=== PATIENT | male | born 1960 | race Caucasian/White ===

== ENCOUNTER 2020-09-07 10:53 | Outpatient (REF) | payer OTHER, SELFPAY | END 2020-09-07 10:54 | disposition home or self-care (01) | LOC: HO.BBR 10:53 | PROVIDERS: Visit Provider Internal Medicine | DX: Z13.89 Encounter for screening for other disorder (principal) ==

== ENCOUNTER 2020-12-10 13:56 | Outpatient (REF) | payer OTHER, SELFPAY | END 2020-12-10 13:57 | disposition home or self-care (01) | LOC: HO.BBR 13:56 | PROVIDERS: PCP Internal Medicine; Visit Provider Internal Medicine | DX: Z13.89 Encounter for screening for other disorder (principal) ==

== ENCOUNTER 2021-03-10 11:24 | Outpatient (REF) | payer OTHER, SELFPAY | END 2021-03-10 11:25 | disposition home or self-care (01) | LOC: HO.BBR 11:24 | PROVIDERS: Visit Provider Internal Medicine | DX: Z13.89 Encounter for screening for other disorder (principal) ==

== ENCOUNTER 2021-06-08 10:47 | Outpatient (REF) | payer OTHER, SELFPAY | END 2021-06-08 10:48 | disposition home or self-care (01) | LOC: HO.BBR 10:47 | PROVIDERS: Visit Provider Internal Medicine | DX: Z13.89 Encounter for screening for other disorder (principal) ==

== ENCOUNTER 2021-09-13 08:53 | Outpatient (REF) | payer OTHER, SELFPAY | END 2021-09-13 08:54 | disposition home or self-care (01) | LOC: HO.BBR 08:53 | PROVIDERS: Visit Provider Internal Medicine Gastroenterology | DX: Z13.89 Encounter for screening for other disorder (principal) ==

== ENCOUNTER 2021-12-02 10:00 | Outpatient (REF) | payer OTHER, SELFPAY | END 2021-12-02 10:01 | disposition home or self-care (01) | LOC: HO.BBR 10:00 | PROVIDERS: Visit Provider Internal Medicine Gastroenterology | DX: Z13.89 Encounter for screening for other disorder (principal) ==

== ENCOUNTER 2022-03-03 13:47 | Outpatient (REF) | payer OTHER, SELFPAY | END 2022-03-03 13:48 | disposition home or self-care (01) | LOC: HO.BBR 13:47 | PROVIDERS: Visit Provider Internal Medicine Gastroenterology | DX: Z13.89 Encounter for screening for other disorder (principal) ==

== ENCOUNTER 2022-06-01 07:57 | Outpatient (REF) | payer OTHER, SELFPAY | END 2022-06-01 07:58 | disposition home or self-care (01) | LOC: HO.BBR 07:57 | PROVIDERS: PCP Internal Medicine; Visit Provider Internal Medicine Gastroenterology | DX: Z13.89 Encounter for screening for other disorder (principal) ==

== ENCOUNTER 2022-06-01 08:01 | Outpatient (REF) | payer OTHER, SELFPAY | END 2022-06-01 08:02 | disposition home or self-care (01) | LOC: HO.BBR 08:01 | PROVIDERS: Visit Provider Internal Medicine Gastroenterology | DX: Z13.89 Encounter for screening for other disorder (principal) ==

== ENCOUNTER 2022-09-01 07:56 | Outpatient (REF) | payer OTHER, SELFPAY | END 2022-09-01 07:57 | disposition home or self-care (01) | LOC: HO.BBR 07:56 | PROVIDERS: Visit Provider Internal Medicine Gastroenterology | DX: Z13.89 Encounter for screening for other disorder (principal) ==

== ENCOUNTER 2022-11-29 08:00 | Outpatient (REF) | payer OTHER, SELFPAY | END 2022-11-29 08:01 | disposition home or self-care (01) | LOC: HO.BBR 08:00 | PROVIDERS: Visit Provider Internal Medicine Gastroenterology | DX: Z13.89 Encounter for screening for other disorder (principal) ==

== ENCOUNTER 2023-02-28 08:00 | Outpatient (REF) | payer OTHER, SELFPAY | END 2023-02-28 08:01 | disposition home or self-care (01) | LOC: HO.BBR 08:00 | PROVIDERS: PCP Internal Medicine; Visit Provider Internal Medicine Gastroenterology | DX: Z13.89 Encounter for screening for other disorder (principal) ==

== ENCOUNTER 2023-05-31 10:05 | Outpatient (REF) | payer OTHER, SELFPAY | END 2023-05-31 10:06 | disposition home or self-care (01) | LOC: HO.BBR 10:05 | PROVIDERS: PCP Internal Medicine; Visit Provider Internal Medicine Gastroenterology | DX: Z13.89 Encounter for screening for other disorder (principal) ==

== ENCOUNTER 2023-09-06 08:05 | Outpatient (REF) | payer OTHER, SELFPAY | END 2023-09-06 08:06 | disposition home or self-care (01) | LOC: HO.BBR 08:05 | PROVIDERS: PCP Internal Medicine; Visit Provider Internal Medicine Gastroenterology | DX: Z13.89 Encounter for screening for other disorder (principal) ==

== ENCOUNTER 2024-01-17 13:39 | Outpatient (REF) | payer OTHER, SELFPAY | END 2024-01-17 13:40 | disposition home or self-care (01) | LOC: HO.BBR 13:39 | PROVIDERS: PCP Internal Medicine; Visit Provider Internal Medicine Gastroenterology | DX: Z13.89 Encounter for screening for other disorder (principal) ==

== ENCOUNTER 2024-04-18 08:08 | Outpatient (REF) | payer OTHER, SELFPAY ==
--- OUTSIDE RECORDS SUMMARY | 2024-04-18 08:20 | XMS_ITS | Encounter Summary ---
Author Organization [facility] Address [address] [place] [address] Care Team Providers Care Stage Setting Painter Apprentice Name Role Phone Regino Cam MD Primary Care Provider Encounter Details Date Type Department Care Team (Late st Contact Info) Description 04/17/2024 Telephone Gastroenterology - [address] [phone] Miki Cyr MD [address] [address] Social History Tobacco Use Types Packs/Day Years Used Date Smoking Tobacco: Never Assessed Sex and Gender Information Value Date Recorded Sex Assigned at Not on file Gender Identity Not on file Sexual Orientation Not on file documented as of this encounter Progress Notes * Coral Mensah [place] - 04/17/2024 2:25 PM EST Faxed orders for phlebotomy to [facility] * Farhana Carter - 04/17/2024 2:08 PM EST PT NEEDS NEW THERAPEUTIC PHLEBOTOMY ORDERS SENT TO [facility], HAS AN APPT THERE TOMORROW @ 8 A.M. documented in this encounter Plan of Treatment Not on file documented as of this encounter Visit Diagnoses Not on filedocumented in this encounter Care Teams Stage Setting Painter Apprentice Relationship Specialty Start Date End Date Regino Cam MD 100 [facility] [address] [place], [place] PCP - General Internal Medicine 01/23/08 documented as of this encounter
--- OUTSIDE RECORDS SUMMARY | 2024-04-18 08:20 | XMS_ITS | Clinical Summary ---
Author Organization [facility] ity Address [address] [place] [address] Care Team Providers Care Human Resource Adviser Name Role Phone Regino Cam MD Primary Care Provider Encounters Date Type Department Care Team Description 04/17/2024 Telephone Gastroenterology - [address] [place] [phone] Miki Cyr MD from Last 3 Months Social History Tobacco Use Types Packs/Day Years Used Date Smoking Tobacco: Never Assessed Sex and Gender Information Value Date Recorded Sex Assigned at Not on file Gender Identity Not on file Sexual Orientation Not on file Plan of Treatment Health Maintenance Due Date Last Done Comments DTaP,Tdap,and Td Vaccines (1 - Tdap) 06/12/1978 Zoster Vaccines (1 of 2) 06/12/2009 Cholesterol Screening (Lipid Panel) 02/22/2022 Colorectal Cancer Screening: Colonoscopy 02/22/2022 Depression Screening 02/22/2022 HIV Screening 02/22/2022 Hepatitis C Screening 02/22/2022 Social Influencers of Health Screening 02/22/2022 COVID-19 Vaccine ( - 2023-2 5 season) 2023 Influenza Vaccine (#1) 2023 RSV Immunization Patients 60 + Years Old (1 - 1-dose 75+ series) 06/12/2034 HIB Vaccines Aged Out No longer eligi ble based on patient's age to complete this topic HPV Vaccines Aged Out No longer eligi ble based on patient's age to complete this topic Hepatitis A Vaccines Aged Out No long er eligible based on patient's age to complete this topic Hepatitis B Vaccines Aged Out No long er eligible based on patient's age to complete this topic IPV Vaccines Aged Out No longer eligi ble based on patient's age to complete this topic MMR Vaccines Aged Out No longer eligi ble based on patient's age to complete this topic Meningococcal ACWY Vaccine Aged Out N o longer eligible based on patient's age to complete this topic Pneumococcal Vaccine: Pediat rics (0 to 5 Years) and At-Risk Patients (6 to 64 Years) Aged Out No longer eligible b ased on patient's age to complete this topic RSV Immunization Patients Un darvin 20 months Aged Out No longer eligible b ased on patient's age to complete this topic Varicella Vaccines Aged Out No longer eligible based on patient's age to complete this topic Care Teams Human Resource Adviser Relationship Specialty Start Date End Date Regino Cam MD 100 [facility] [address] [place], [place] PCP - General Internal Medicine 01/23/08
== END 2024-04-18 08:09 | disposition home or self-care (01) ==
LOC: HO.BBR 08:08
PROVIDERS: PCP Internal Medicine; Visit Provider Internal Medicine Gastroenterology
DX: Z13.89 Encounter for screening for other disorder (principal)

== ENCOUNTER 2024-07-17 08:06 | Outpatient (REF) | payer OTHER, SELFPAY ==
--- OUTSIDE RECORDS SUMMARY | 2024-07-17 08:16 | XMS_ITS | Clinical Summary ---
Author Organization [facility] ity Address [address] [place] [address] Care Team Providers Care Natural Resource Specialist Name Role Phone Regino Cam MD Primary Care Provider Social History Tobacco Use Types Packs/Day Years Used Date Smoking Tobacco: Never Assessed Sex and Gender Information Value Date Recorded Sex Assigned at Not on file Legal Sex Male 12:37 PM EST Gender Identity Not on file Sexual Orientation Not on file Plan of Treatment Health Maintenance Due Date Last Done Comments DTaP,Tdap,and Td Vaccines (1 - Tdap) 06/12/1978 Pneumococcal Vaccine: 50+ Ye ars (1 of 1 - PCV) 06/12/2009 Zoster Vaccines (1 of 2) 06/12/2009 Abdominal Aortic Aneurysm (A AA) Screen 02/22/2022 Cholesterol Screening (Lipid Panel) 02/22/2022 Colorectal Cancer Screening: Colonoscopy 02/22/2022 Depression Screening 02/22/2022 Hepatitis C Screening 02/22/2022 Social Influencers of Health Screening 02/22/2022 COVID-19 Vaccine ( - 2023-2 5 season) 2023 Falls Risk Assessment 06/12/2024 Influenza Vaccine (Season Ended) 2024 RSV Immunization Adult Patie nts (1 - 1-dose 75+ series) 06/12/2034 HIB [...] patient's age to complete this topic Meningococcal B Vaccine Aged Out No l onger eligible based on patient's age to complete [...] on patient's age to complete this topic Procedures Procedure Name Priority Date/Time Associated Diagnosis Comments EXTERNAL CLINICAL LAB 04/19/2024 from Last 3 Months Results * External clinical lab (04/19/2024) us Provider [facility] BLOOD ORDERABLES Fin al Result from Last 3 Months Care Teams Natural Resource Specialist Relationship Specialty Start Date End Date [facility]egino Cam MD [facility] [address] [place], [place] PCP - General Internal Medicine 01/23/08
== END 2024-07-17 08:07 | disposition home or self-care (01) ==
LOC: HO.BBR 08:06
PROVIDERS: PCP Internal Medicine; Visit Provider Internal Medicine Gastroenterology
DX: Z13.89 Encounter for screening for other disorder (principal)

== ENCOUNTER 2024-10-16 08:06 | Outpatient (REF) | payer MEDICARE, OTHER, SELFPAY ==
--- OUTSIDE RECORDS SUMMARY | 2024-10-16 08:13 | XMS_ITS | Clinical Summary ---
Author Organization 299 [facility] Address [address] [place] [address] Phone Care Team Providers Care Professor Of Violin Name Role Phone Regino Cam MD Primary Care Provider Encounters Date Type Department Care Team Description 07/18/2024 Telephone Gastroenterology - [address] [place] [phone] Miki Cyr MD from Last 3 Months Social History Tobacco Use Types Packs/Day Years Used Date Smoking Tobacco: Never Assessed Sex and Gender Information Value Date Recorded Sex Assigned at Not on file Legal Sex Male 12:37 PM EST Gender Identity Not on file Sexual Orientation Not on file Plan of Treatment Health Maintenance Due Date Last Done Comments Diabetes: Annual GFR (Glomerular Filtration Rate) 1959 Diabetes: Annual Foot Exam 06/12/1969 Diabetes: Annual Retina Eye Exam 06/12/1969 RSV Immunization Adult Patients (1 - Risk 60-74 years 1-dose series) 2019 Abdominal Aortic Aneurysm (AAA) Screen 02/22/2022 Cholesterol Screening (Lipid Panel) 02/22/2022 Colorectal Cancer Screening: Colonoscopy 02/22/2022 Hepatitis C Screening 02/22/2022 Medicare Annual Wellness Visit 02/22/2022 Social Influencers of Health Screening 02/22/2022 COVID-19 Vaccine ( season) 2023 03/28/2023, 01/19/2022, 02/02/2021, Additional history exists Depression Screening 03/27/2024 Falls Risk Assessment 06/12/2024 Diabetes: Annual Urine Albumin-Creatinine Ratio (uACR) 07/19/2024 Diabetes: Blood Sugar Control Test (HGBA1C) 07/19/2024 Influenza Vaccine (#1) 2024 , 12/26/2023, 03/14/2023, Additional history exists DTaP,Tdap,and Td Vaccines (3 - Td or Tdap) 04/12/2033 04/12/2023, 09/18/2012 Zoster Vaccines Completed 12/05/2019, 09/25/2019 Pneumococcal Vaccine: 50+ Years Completed 03/18/2022, 01/26/2012 Hepatitis A Vaccines Completed 10/17/2022, 04/19/2022, 03/18/2022 Hepatitis B Vaccines Completed 10/17/2022, 04/19/2022, 03/18/2022, Additional history exists HIB Vaccines Aged Out No longer eligi [...] to complete this topic RSV Immunization Patients Under 20 months Aged Out No longer eligible based on patient's age to complete this topic Varicella Vaccines Aged Out No longer eligible based on patient's age to complete this topic Procedures Procedure Name Priority Date/Time Associated Diagnosis Comments HEMOCHROMATOSIS MUTATION Routine 07/18/2024 1:12 PM EDT Hereditary hemochromatosis (CMS/HCC V24) EXTERNAL CLINICAL LAB 07/18/2024 from Last 3 Months Results * Hemochromatosis mutation (07/18/2024 1:12 PM EDT) Hereditary Hemochromatosis See Below 07/30/2024 10:41 PM EDT [facility] Comment: 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 This patient is negative for the C282Y pathogenic variant. 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 This result reduces the likelihood of hereditary hemochromatosis (HH). However, it does not rule out the presence of other pathogenic variants within the HFE gene or a diagnosis of HH. The risk of this individual to carry an HFE pathogenic variant other than those tested in this assay depends greatly on family and clinical history as well as ethnicity. This assay does not test for other primary or secondary iron overload disorders. Consider genetic counseling and DNA testing for at-risk family members. Laboratory results and submitted clinical information reviewed by Catalina Singer, Ph.D., [facility]. DETAILED ASSAY INFORMATION: Hereditary hemochromatosis (HH) is an autosomal recessive disorder of iron metabolism that can result in iron overload and potential organ failure. It is one of the most common genetic disorders in individuals of - ancestry, with an estimated carrier frequency of 10%. HH is caused by pathogenic variants in the HFE gene. Most individuals with HH (60-90%) are homozygous for the C282Y pathogenic variant. A smaller percentage of affected individuals are either compound heterozygous for the C282Y and H63D pathogenic variants (3%-8%), or homozygous for the H63D pathogenic variant (approximately 1%). METHODOLOGY: This assay detects two pathogenic variants in the HFE gene, C282Y (NM [id number]: c.845G>A, p.[id number]) and H63D (NM [id number]: c.187C>G, p.Wgf69Sme), that are commonly associated with HH. These variants are detected by multiplex-polymerase chain reaction (PCR) amplification, followed by restriction enzyme digestion and capillary electrophoresis. LIMITATIONS: This assay does not detect other pathogenic variants in the HFE gene that may be associated with HH. Although rare, false positive or false negative results may occur. All results should be interpreted in the context of clinical findings, relevant history, and other laboratory data. Health care providers, please contact your local [facility] genetic counselor or call [phone] ( ) for assistance with the interpretation of these results. This test was developed and its analytical performance characteristics have been determined by [facility]. It has not been cleared or approved by FDA. This assay has been validated pursuant to the CLIA regulations and is used for clinical purposes. For more information, please refer to http://education.YupiCall.Takeacoder/faq/hemochromatosis. (This link is being provided for informational/educational purposes only.) A portion of the testing was performed at [facility]. Reviewed and signed by Laboratory results and submitted clinical information reviewed by Catalina Singer, Ph.D., [facility], Signed on 07/30/2024 at 18:57 Test Performed at: [facility] [address] [address] Radha Salazar MD, PhD, [facility] Blood Venous blood specimen / Unknown Venipuncture / Unknown 07/18/2024 1:12 PM EDT 07/18/2024 1:28 PM EDT Miki Cyr MD LAB MOLECULAR DIAGNOSTICS ORDER RUSTAM Final Result [facility] [address] [place] [address] * External clinical lab (07/18/2024) Provider [facility] BLOOD ORDERABLES Fin al Result from Last 3 Months Insurance MEDICARE Care Teams Professor Of Violin Relationship Specialty Start Date End Date Regino Cam MD 100 [facility] [address] [place], [place] PCP - General Internal Medicine 01/23/08
== END 2024-10-16 08:07 | disposition home or self-care (01) ==
LOC: HO.BBR 08:06
PROVIDERS: PCP Internal Medicine; Visit Provider Internal Medicine Gastroenterology
DX: Z13.89 Encounter for screening for other disorder (principal)

== ENCOUNTER 2025-01-29 07:57 | Outpatient (REF) | payer MEDICARE, OTHER, SELFPAY ==
--- OUTSIDE RECORDS SUMMARY | 2025-01-29 08:02 | XMS_ITS | Clinical Summary ---
Author Organization 299 [facility] Address [address] [place] [address] Phone Care Team Providers Care Commercial Representative Name Role Phone Regino Cam MD Primary Care Provider Social History Tobacco Use Types Packs/Day Years Used Date Smoking Tobacco: Never Assessed Sex and Gender Information Value Date Recorded Sex Assigned at Not on file Legal Sex Male 12:37 PM EST Gender Identity Not on file Sexual Orientation Not on file Plan of Treatment Health Maintenance Due Date Last Done Comments Colorectal Cancer Screening: Colonoscopy 1959 Diabetes: Annual GFR (Glomerular Filtration Rate) 1959 Diabetes: Annual Foot Exam 06/12/1969 Diabetes: Annual Retina Eye Exam 06/12/1969 RSV Immunization Adult Patients (1 - Risk 50-74 years 1-dose series) 06/12/2009 Abdominal Aortic Aneurysm (AAA) Screen 02/22/2022 Cholesterol Screening (Lipid Panel) 02/22/2022 Hepatitis C Screening 02/22/2022 Medicare Annual Wellness Visit 02/22/2022 Social Influencers of Health Screening 02/22/2022 Depression Screening 03/27/2024 Falls Risk Assessment 06/12/2024 Diabetes: Annual Urine Albumin-Creatinine Ratio (uACR) 07/19/2024 Diabetes: Blood Sugar Control Test (HGBA1C) 07/19/2024 COVID-19 Vaccine ( season) 2024 03/28/2023, 01/19/2022, 02/02/2021, Additional history exists Influenza Vaccine (#1) 2024 , 12/26/2023, 03/14/2023, [...] on patient's age to complete [place] [id number] Care Teams Commercial Representative Relationship Specialty Start Date End Date Regino Cam MD [address] [place] [address] PCP - General Internal Medicine 01/23/08
== END 2025-01-29 07:58 | disposition home or self-care (01) ==
LOC: HO.BBR 07:57
PROVIDERS: PCP Internal Medicine; Visit Provider Internal Medicine Gastroenterology
DX: Z13.89 Encounter for screening for other disorder (principal)